=== PATIENT | male | born 1940 | race Caucasian/White ===

== ENCOUNTER 2016-03-15 09:19 | Inpatient (IN) | payer OTHER, BC ==
[~2016-03-15] VITALS: Ht 177.8 cm; Wt 167.6 kg
[2016-03-15 00:45] VITALS: BP 132/69
[~2016-03-15 09:19] MED LIST: ASMANEX TW200 MICRO1 IH; BENICAR40 MG PO; COLACE100 MG PO; COREG25 M1 PO; DULERA 200 MCG/13 GM IH; FLONASE16 G1 BOTH NARES; HYTRIN10 MG PO; LEVAQUIN750 MG PO; LEXAPRO10 MG PO; NORCO 5/3251 TABLET PO; NORVASC10 MG PO; POLYETHYLENE GL17 GM PO; PRILOSEC20 MG PO; PROVENTIL HFA6.7 GM IH; SAW PALMETTO160 MG PO; SINGULAIR10 MG PO; SPIRIVA1 INHALATI IH; TAMSULOSIN HCL0.4 MG PO; ZYRTEC10 M2 PO
[2016-03-15] MEDS ORDERED: FUROSEMIDE40 MG PO (09:38)
[2016-03-15] MEDS ORDERED: XARELTO20 MG PO (09:38)
[2016-03-15] MEDS ORDERED: CARVEDILOL25 MG PO (09:38)
[2016-03-15] MEDS ORDERED: CYMBALTA30 MG PO (09:39)
[2016-03-15] MEDS ORDERED: TYLENOL REGULA325 MG PO (09:41)
[2016-03-15 11:10] LABS: EOSINOPHIL (%) 1.9 % (0-5); EOSINOPHIL COUNT 0.2 K/uL (0-0.3); HEMATOCRIT 32.4 % (38.0-50.0); IMMATURE GRANULOCYTE (%) 0.3 % (0.0-0.7); IMMATURE GRANULOCYTE COUNT 0.3 K/uL; LYMPHOCYTE COUNT 0.9 K/uL (1.0-2.8); MCH 30.1 PG (29.0-34.0); MCHC 31.5 G/DL (30.0-36.0); MCV 95.6 FL (86-99); MEAN PLAT.VOLUME 12.5 uM^3 (9.0-12.4); MONOCYTE (%) 9.3 % (3-12); MONOCYTE COUNT 0.8 K/uL (0-0.8); NEUTROPHIL (%) 78.4 % (45-76); NEUTROPHIL COUNT 7.1 K/uL (1.8-6.4); PLATELET COUNT 111 K/uL (156-360); RBC DIS.WIDTH-CV 15.5 % (11.8-14.6); RBC DIS.WIDTH-SD 51.4 % (39-53); RED BLOOD COUNT 3.39 M/uL (4.00-5.50); WHITE BLOOD COUNT 9.1 K/uL (4.1-10.2)
[2016-03-15 11:19] LABS: PROTHROMBIN TIME 21.3 (9.2-11.2); PTT 41.8 (25-32)
[2016-03-15 11:31] LABS: TROP-I INTERPRETATION NEGATIVE; TROPONIN-I 0.03 ng/mL (0.0-0.30)
[2016-03-15 11:32] LABS: CK-MB 14.2 ng/mL (0.0-4.9)
[2016-03-15 12:38] LABS: ANION GAP 14 MEQ/L (2-14); CHLORIDE 107 MEQ/L (99-109); CREATINE KINASE 749 IU/L (1-294); GFR ESTIMATE (CALCULATED) > 59 mL/min/; GLUCOSE 105 mg/dL (70-99); POTASSIUM 3.5 MEQ/L (3.7-5.4); SAMPLE HEMOLYSIS CHECK 0; SAMPLE ICTERIC CHECK 0; SAMPLE LIPEMIA CHECK 0; SODIUM 144 MEQ/L (136-147); TOTAL CK 749 IU/L (1-294); UREA NITROGEN (BUN) 21 mg/dL (9-23)
[2016-03-15 13:24] LABS: ADD MIUA? YES; BILIRUBIN MODERATE; BLOOD LARGE; GLUCOSE (STRIP) NEGATIVE; KETONES 15; LEUKOCYTES TRACE; NITRITE NEGATIVE; PROTEIN (STRIP) 30; SPECIFIC GRAVITY 1.026 (1.000-1.030)
[2016-03-15 13:25] LABS: COLOR DK YELLOW ((YELLOW))
[2016-03-15 13:34] LABS: ICTOTEST NEGATIVE
[2016-03-15 13:58] LABS: BACTERIA NONE SEEN; CASTS NONE SEEN /LPF; CRYSTALS NONE SEEN; EPITHELIAL CELLS RARE; MUCUS RARE; RED BLOOD CELLS TNTC /HPF (0-5); UCUL ADDED? NO
[2016-03-15 16:14] LABS: TROP-I INTERPRETATION NEGATIVE; TROPONIN-I 0.04 ng/mL (0.0-0.30)
[2016-03-15 16:32] VITALS: BP 143/69
[2016-03-15 21:00] VITALS: BP 148/79
[2016-03-15 23:21] LABS: TROP-I INTERPRETATION NEGATIVE; TROPONIN-I 0.03 ng/mL (0.0-0.30)
[2016-03-16 03:45] VITALS: BP 152/76
[2016-03-16 07:20] LABS: HEMATOCRIT 30.7 % (38.0-50.0); MCH 29.8 PG (29.0-34.0); MCHC 30.9 G/DL (30.0-36.0); MCV 96.2 FL (86-99); MEAN PLAT.VOLUME 12.7 uM^3 (9.0-12.4); PLATELET COUNT 128 K/uL (156-360); RBC DIS.WIDTH-CV 15.9 % (11.8-14.6); RBC DIS.WIDTH-SD 55.5 % (39-53); RED BLOOD COUNT 3.19 M/uL (4.00-5.50); WHITE BLOOD COUNT 9.2 K/uL (4.1-10.2)
[2016-03-16 07:31] LABS: INTER. NORMALIZED RATIO 1.5; PROTHROMBIN TIME 15.9 (9.2-11.2)
[2016-03-16 08:03] VITALS: BP 156/83
[2016-03-16 08:04] LABS: ANION GAP 9 MEQ/L (2-14); CHLORIDE 108 MEQ/L (99-109); CREATINE KINASE 324 IU/L (1-294); GFR ESTIMATE (CALCULATED) > 59 mL/min/; GLUCOSE 113 mg/dL (70-99); POTASSIUM 3.8 MEQ/L (3.7-5.4); SAMPLE HEMOLYSIS CHECK 0; SAMPLE ICTERIC CHECK 0; SAMPLE LIPEMIA CHECK 0; SODIUM 143 MEQ/L (136-147); UREA NITROGEN (BUN) 20 mg/dL (9-23)
[2016-03-16 11:58] VITALS: BP 146/78
[2016-03-16 15:36] VITALS: BP 142/68
[2016-03-16 19:18] VITALS: BP 127/60
[2016-03-16 22:14] VITALS: BP 132/74
[2016-03-17 03:46] VITALS: BP 152/70
[2016-03-17 07:05] LABS: EOSINOPHIL (%) 0 % (0-5); HEMATOCRIT 31.8 % (38.0-50.0); IMMATURE GRANULOCYTE (%) 0.4 % (0.0-0.7); LYMPHOCYTE COUNT 0.3 K/uL (1.0-2.8); MCH 30.1 PG (29.0-34.0); MCHC 31.1 G/DL (30.0-36.0); MCV 96.7 FL (86-99); MEAN PLAT.VOLUME 12.6 uM^3 (9.0-12.4); MONOCYTE (%) 3.4 % (3-12); MONOCYTE COUNT 0.3 K/uL (0-0.8); NEUTROPHIL (%) 92.2 % (45-76); NEUTROPHIL COUNT 7.3 K/uL (1.8-6.4); PLATELET COUNT 119 K/uL (156-360); RBC DIS.WIDTH-CV 15.7 % (11.8-14.6); RBC DIS.WIDTH-SD 55.2 % (39-53); RED BLOOD COUNT 3.29 M/uL (4.00-5.50); WHITE BLOOD COUNT 7.9 K/uL (4.1-10.2)
[2016-03-17 07:29] LABS: ANION GAP 7 MEQ/L (2-14); CHLORIDE 107 MEQ/L (99-109); GFR ESTIMATE (CALCULATED) > 59 mL/min/; GLUCOSE 163 mg/dL (70-99); SAMPLE HEMOLYSIS CHECK 0; SAMPLE ICTERIC CHECK 0; SAMPLE LIPEMIA CHECK 0; SODIUM 141 MEQ/L (136-147); UREA NITROGEN (BUN) 21 mg/dL (9-23)
[2016-03-17 07:54] VITALS: BP 151/83
[2016-03-17 11:09] VITALS: BP 145/72
[2016-03-17 15:34] VITALS: BP 131/69
[2016-03-17 19:42] VITALS: BP 119/57
[2016-03-18 00:21] VITALS: BP 123/57
[2016-03-18 04:14] VITALS: BP 127/69
[2016-03-18 06:41] LABS: HEMATOCRIT 30.6 % (38.0-50.0); MCH 29.8 PG (29.0-34.0); MCV 95.9 FL (86-99); MEAN PLAT.VOLUME 12.1 uM^3 (9.0-12.4); PLATELET COUNT 120 K/uL (156-360); RBC DIS.WIDTH-CV 15.5 % (11.8-14.6); RBC DIS.WIDTH-SD 53.7 % (39-53); RED BLOOD COUNT 3.19 M/uL (4.00-5.50); WHITE BLOOD COUNT 8.4 K/uL (4.1-10.2)
[2016-03-18 07:10] LABS: ANION GAP 5 MEQ/L (2-14); CHLORIDE 108 MEQ/L (99-109); GFR ESTIMATE (CALCULATED) > 59 mL/min/; POTASSIUM 3.9 MEQ/L (3.7-5.4); SAMPLE HEMOLYSIS CHECK 0; SAMPLE ICTERIC CHECK 0; SAMPLE LIPEMIA CHECK 0; SODIUM 142 MEQ/L (136-147); UREA NITROGEN (BUN) 26 mg/dL (9-23)
[2016-03-18 07:19] LABS: GLUCOSE 107 mg/dL (70-99)
[2016-03-18 08:31] VITALS: BP 155/74
[2016-03-18 16:08] VITALS: BP 114/69
[2016-03-18 20:00] VITALS: BP 129/77
[2016-03-18 22:40] VITALS: BP 114/69
[2016-03-19 03:14] VITALS: BP 137/73
[2016-03-19 06:50] LABS: HEMATOCRIT 32.9 % (38.0-50.0); MCH 29.9 PG (29.0-34.0); MCHC 30.7 G/DL (30.0-36.0); MCV 97.3 FL (86-99); MEAN PLAT.VOLUME 12.7 uM^3 (9.0-12.4); PLATELET COUNT 119 K/uL (156-360); RBC DIS.WIDTH-CV 15.9 % (11.8-14.6); RBC DIS.WIDTH-SD 56.7 % (39-53); RED BLOOD COUNT 3.38 M/uL (4.00-5.50); WHITE BLOOD COUNT 7.3 K/uL (4.1-10.2)
[2016-03-19 07:16] LABS: ANION GAP 8 MEQ/L (2-14); CHLORIDE 108 MEQ/L (99-109); GFR ESTIMATE (CALCULATED) > 59 mL/min/; GLUCOSE 87 mg/dL (70-99); POTASSIUM 4.1 MEQ/L (3.7-5.4); SAMPLE HEMOLYSIS CHECK 0; SAMPLE ICTERIC CHECK 0; SAMPLE LIPEMIA CHECK 0; SODIUM 143 MEQ/L (136-147); UREA NITROGEN (BUN) 28 mg/dL (9-23)
[2016-03-19 08:40] VITALS: BP 146/72
[2016-03-19 11:19] VITALS: BP 105/59
[2016-03-19 16:45] VITALS: BP 145/78
[2016-03-19 19:22] VITALS: BP 147/71
[2016-03-19 23:05] VITALS: BP 151/72
[2016-03-20 03:10] VITALS: BP 145/67
[2016-03-20 08:21] VITALS: BP 151/80
[2016-03-20 11:25] VITALS: BP 103/53
[2016-03-20] MEDS ORDERED: CLINDAMYCIN HC300 MG PO (14:53)
[2016-03-20] MEDS ORDERED: FUROSEMIDE40 MG PO (14:53)
[2016-03-20] MEDS ORDERED: FAMOTIDINE20 MG PO (14:53)
[2016-03-20] MEDS ORDERED: CIPROFLOXACIN H10 ML BOTH EYES (14:53)
== END 2016-03-20 17:38 | disposition home health service (06) | DRG 557 ==
LOC: EME → EDBD 09:19 → EME 09:19 → 5WEST 13:05 → EDOF 13:05 → 5WEST 15:28 → 5EAST 03-16 11:48 → 5WEST 03-16 11:48 → 5EAST 03-16 21:48
PROVIDERS: Emergency Medicine; Hospitalist; Nurse Practitioner Adult Health; Student in an Organized Health Care Education/Training Program
DX: M62.82 Rhabdomyolysis (principal); G93.40 Encephalopathy, unspecified; J44.1 Chronic obstructive pulmonary disease with (acute) exacerbation; Z68.43 Body mass index [BMI] 50.0-59.9, adult; R44.3 Hallucinations, unspecified; J44.0 Chronic obstructive pulmonary disease with (acute) lower respiratory infection; S30.1XXA Contusion of abdominal wall, initial encounter; W01.10XA Fall on same level from slipping, tripping and stumbling with subsequent striking against unspecified object, initial encounter; Z99.81 Dependence on supplemental oxygen; I48.2 Chronic atrial fibrillation; Z91.81 History of falling; E66.01 Morbid (severe) obesity due to excess calories; H10.89 Other conjunctivitis; J20.9 Acute bronchitis, unspecified; Z87.891 Personal history of nicotine dependence; L03.116 Cellulitis of left lower limb; I87.8 Other specified disorders of veins; G47.33 Obstructive sleep apnea (adult) (pediatric); K21.9 Gastro-esophageal reflux disease without esophagitis; F07.81 Postconcussional syndrome
CPT/HCPCS: 70450; 71010; 80048; 81003; 82550; 82550 91; 82553; 84484; 85025; 85027; 85610; 85730; 87040; 93005; 93971; 94640; 94640 76; 94799; 97530 GO; 99202; 99281; 99285; G0378; G8978 GP CM; G8979 CJ; G8987 GO CM; G8988 GO CJ; J0456; J0696; J1644; J1956; J2920; J7030; J7050; J7512; J7644

== ENCOUNTER 2016-05-12 12:35 | Inpatient (IN) | payer OTHER, BC ==
[~2016-05-12] VITALS: Ht 177.8 cm; Wt 153.7 kg
[~2016-05-12 12:35] MED LIST changes: +CARVEDILOL25 MG PO; +CIPROFLOXACIN H10 ML BOTH EYES; +CLINDAMYCIN HC300 MG PO; +CYMBALTA30 MG PO; +FAMOTIDINE20 MG PO; +FUROSEMIDE40 MG PO; +TYLENOL REGULA325 MG PO; +XARELTO20 MG PO
[2016-05-12] MEDS ORDERED: FUROSEMIDE40 MG PO (13:07)
[2016-05-12 14:00] LABS: EOSINOPHIL (%) 5.7 % (0-5); EOSINOPHIL COUNT 0.3 K/uL (0-0.3); HEMATOCRIT 31.9 % (38.0-50.0); IMMATURE GRANULOCYTE (%) 0.2 % (0.0-0.7); INSTRUMENT ABS NEUTROPHIL CT 4.6 K/uL; LYMPHOCYTE COUNT 0.5 K/uL (1.0-2.8); MCH 29.4 PG (29.0-34.0); MCHC 30.4 G/DL (30.0-36.0); MCV 96.7 FL (86-99); MEAN PLAT.VOLUME 12.8 uM^3 (9.0-12.4); MONOCYTE (%) 8.2 % (3-12); MONOCYTE COUNT 0.5 K/uL (0-0.8); NEUTROPHIL (%) 77.7 % (45-76); NEUTROPHIL COUNT 4.6 K/uL (1.8-6.4); PLATELET COUNT 105 K/uL (156-360); RBC DIS.WIDTH-CV 15.1 % (11.8-14.6); RBC DIS.WIDTH-SD 54.1 % (39-53)
[2016-05-12 14:18] LABS: CHLORIDE 103 mEq/L (99-109); POTASSIUM 4.1 mEq/L (3.7-5.4); SODIUM 139 mEq/L (136-147)
[2016-05-12 14:20] LABS: GLUCOSE 102 mg/dL (70-99)
[2016-05-12 14:21] LABS: ANION GAP 8 MEQ/L (2-14)
[2016-05-12 14:24] LABS: GFR ESTIMATE (CALCULATED) > 59 mL/min/
[2016-05-12 14:25] LABS: UREA NITROGEN (BUN) 24 mg/dL (9-23)
[2016-05-12] MEDS ORDERED: DULOXETINE HCL60 MG PO (15:19)
[2016-05-12] MEDS ORDERED: BACTRIM,SEPT1 TABLET PO (15:19)
[2016-05-12] MEDS ORDERED: COREG25 M1 PO (15:20)
[2016-05-12] MEDS ORDERED: DULERA 200 MCG/13 GM IH (15:21)
[2016-05-12] MEDS ORDERED: SPIRIVA1 INHALATI IH (15:21)
[2016-05-12] MEDS ORDERED: PROVENTIL HFA6.7 GM IH (15:23)
[2016-05-12] MEDS ORDERED: FLONASE16 G1 BOTH NARES (15:24)
[2016-05-12] MEDS ORDERED: ZYRTEC10 M3 PO (15:24)
[2016-05-12] MEDS ORDERED: TYLENOL EXTRA500 MG PO (15:24)
[2016-05-12] MEDS ORDERED: PROBIOTIC1 EAC1 PO (15:25)
[2016-05-12 16:00] LABS: ERTH.SED.RATE 26 MM/HR (0-20)
[2016-05-12 16:31] LABS: C-REACTIVE PROTEIN 18.6 MG/L (0-10)
[2016-05-12 18:25] VITALS: BP 149/99
[2016-05-13 00:19] VITALS: BP 157/80
[2016-05-13 04:06] VITALS: BP 150/82
[2016-05-13 07:11] LABS: EOSINOPHIL (%) 6.8 % (0-5); EOSINOPHIL COUNT 0.4 K/uL (0-0.3); HEMATOCRIT 30.2 % (38.0-50.0); IMMATURE GRANULOCYTE (%) 0.4 % (0.0-0.7); INSTRUMENT ABS NEUTROPHIL CT 3.8 K/uL; LYMPHOCYTE COUNT 0.6 K/uL (1.0-2.8); MCH 28.8 PG (29.0-34.0); MCHC 29.8 G/DL (30.0-36.0); MCV 96.5 FL (86-99); MONOCYTE (%) 10.7 % (3-12); MONOCYTE COUNT 0.6 K/uL (0-0.8); NEUTROPHIL (%) 70.8 % (45-76); NEUTROPHIL COUNT 3.8 K/uL (1.8-6.4); PLATELET COUNT 100 K/uL (156-360); RBC DIS.WIDTH-CV 15.2 % (11.8-14.6); RBC DIS.WIDTH-SD 53.8 % (39-53); RED BLOOD COUNT 3.13 M/uL (4.00-5.50); WHITE BLOOD COUNT 5.3 K/uL (4.1-10.2)
[2016-05-13 07:29] LABS: ALKALINE PHOSPHATASE 70 IU/L (3-129); ANION GAP 7 MEQ/L (2-14); CHLORIDE 107 MEQ/L (99-109); GFR ESTIMATE (CALCULATED) > 59 mL/min/; GLUCOSE 97 mg/dL (70-99); POTASSIUM 4.2 MEQ/L (3.7-5.4); SAMPLE HEMOLYSIS CHECK 0; SAMPLE ICTERIC CHECK 0; SAMPLE LIPEMIA CHECK 0; SODIUM 142 MEQ/L (136-147); TOTAL BILIRUBIN 0.9 MG/DL (0.0-1.0); UREA NITROGEN (BUN) 24 mg/dL (9-23)
[2016-05-13 07:43] VITALS: BP 186/94
[2016-05-13 13:17] VITALS: BP 139/71
[2016-05-13 16:02] VITALS: BP 136/74
[2016-05-13 20:00] VITALS: BP 145/90
[2016-05-14] VITALS: BP 148/91
[2016-05-14 04:00] VITALS: BP 148/73
[2016-05-14 07:46] VITALS: BP 146/80
[2016-05-14 10:56] VITALS: BP 132/58
[2016-05-14 12:02] LABS: ANION GAP 5 MEQ/L (2-14); CHLORIDE 104 MEQ/L (99-109); POTASSIUM 3.6 MEQ/L (3.7-5.4); SAMPLE HEMOLYSIS CHECK 0; SAMPLE ICTERIC CHECK 0; SAMPLE LIPEMIA CHECK 0; SODIUM 143 MEQ/L (136-147)
[2016-05-14 12:08] LABS: GFR ESTIMATE (CALCULATED) > 59 mL/min/; GLUCOSE 116 mg/dL (70-99); UREA NITROGEN (BUN) 19 mg/dL (9-23)
[2016-05-14 16:02] VITALS: BP 143/72
[2016-05-14 20:00] VITALS: BP 135/67
[2016-05-15] VITALS: BP 130/60
[2016-05-15 04:00] VITALS: BP 139/60
[2016-05-15 07:42] VITALS: BP 144/77
[2016-05-15 08:11] LABS: ANION GAP 6 MEQ/L (2-14); CHLORIDE 102 MEQ/L (99-109); GFR ESTIMATE (CALCULATED) > 59 mL/min/; GLUCOSE 96 mg/dL (70-99); POTASSIUM 4.3 MEQ/L (3.7-5.4); SAMPLE HEMOLYSIS CHECK 0; SAMPLE ICTERIC CHECK 0; SAMPLE LIPEMIA CHECK 0; SODIUM 144 MEQ/L (136-147); UREA NITROGEN (BUN) 18 mg/dL (9-23)
[2016-05-15 11:17] VITALS: BP 125/58
[2016-05-15 15:26] VITALS: BP 135/62
[2016-05-15 19:37] VITALS: BP 123/58
[2016-05-16] VITALS: BP 134/66
[2016-05-16 03:31] VITALS: BP 133/60
[2016-05-16 07:21] LABS: HEMATOCRIT 31.8 % (38.0-50.0); MCHC 30.2 G/DL (30.0-36.0); MCV 96.1 FL (86-99); RED BLOOD COUNT 3.31 M/uL (4.00-5.50); WHITE BLOOD COUNT 6.1 K/uL (4.1-10.2)
[2016-05-16 07:47] VITALS: BP 137/76
[2016-05-16 08:08] LABS: MEAN PLAT.VOLUME 12.9 uM^3 (9.0-12.4); PLATELET COUNT 110 K/uL (156-360)
[2016-05-16 08:30] LABS: IRON 49 MCG/DL (35-150)
[2016-05-16 08:32] LABS: ANION GAP 7 MEQ/L (2-14); CHLORIDE 98 MEQ/L (99-109); GFR ESTIMATE (CALCULATED) > 59 mL/min/; GLUCOSE 95 mg/dL (70-99); POTASSIUM 3.9 MEQ/L (3.7-5.4); SAMPLE HEMOLYSIS CHECK 0; SAMPLE ICTERIC CHECK 0; SAMPLE LIPEMIA CHECK 0; SODIUM 143 MEQ/L (136-147); UREA NITROGEN (BUN) 22 mg/dL (9-23)
[2016-05-16 09:40] LABS: FERRITIN 54 NG/ML (22-322)
[2016-05-16] MEDS ORDERED: DULOXETINE HCL30 MG PO (10:58)
[2016-05-16 11:23] VITALS: BP 144/64
[2016-05-16] MEDS ORDERED: FUROSEMIDE40 MG PO (12:34)
== END 2016-05-16 13:33 | disposition home health service (06) | DRG 987 ==
LOC: EME → EDBD 12:35 → EME 12:35 → EDOF 15:12 → 5SOUTH 15:12
PROVIDERS: Hospitalist; Internal Medicine Cardiovascular Disease; Nurse Practitioner Adult Health; Physician Assistant; Physician Assistant Medical
PROC: 0MD Bursae and Ligaments, Extraction (ICD-10-PCS; principal; 2016-05-13)
DX: I83.228 Varicose veins of left lower extremity with both ulcer of other part of lower extremity and inflammation (principal); I50.33 Acute on chronic diastolic (congestive) heart failure; J44.0 Chronic obstructive pulmonary disease with (acute) lower respiratory infection; Z68.43 Body mass index [BMI] 50.0-59.9, adult; Z99.81 Dependence on supplemental oxygen; I48.2 Chronic atrial fibrillation; I27.2 Other secondary pulmonary hypertension; E66.01 Morbid (severe) obesity due to excess calories; I11.0 Hypertensive heart disease with heart failure; G47.33 Obstructive sleep apnea (adult) (pediatric); E78.5 Hyperlipidemia, unspecified
CPT/HCPCS: 71010; 73590; 80048; 80053; 80202; 82728; 83540; 83605; 83880; 84466; 85025; 85027; 85651; 86140; 87040; 87070; 87075; 87205; 93005; 93306; 93925; 93971; 94640; 94640 76; 94799; 99202; 99281; 99285; J0692; J1644; J1940; J3370; J7030; J7050

== ENCOUNTER → 2016-07-12 | Outpatient (CLI) | payer OTHER, BC ==
[~2016-07-12] VITALS: Ht 177.8 cm; Wt 158.0 kg
[~2016-07-12] MED LIST changes: +BACTRIM,SEPT1 TABLET PO; +DULOXETINE HCL30 MG PO; +DULOXETINE HCL60 MG PO; +PROBIOTIC1 EAC1 PO; +TYLENOL EXTRA500 MG PO; +ZYRTEC10 M3 PO
[2016-07-12 16:33] VITALS: BP 166/79
== END | disposition home or self-care (01) ==
LOC: IVINF 15:51
DX: L03.116 Cellulitis of left lower limb (principal); L97.821 Non-pressure chronic ulcer of other part of left lower leg limited to breakdown of skin
CPT/HCPCS: 96365; J0696; J7050

== ENCOUNTER 2016-10-18 02:18 | Inpatient (IN) | payer OTHER, BC ==
[~2016-10-18] VITALS: Ht 180.3 cm; Wt 167.0 kg
[2016-10-18 03:24] LABS: EOSINOPHIL COUNT 0.2 K/uL (0-0.3); HEMATOCRIT 33.8 % (38.0-50.0); IMMATURE GRANULOCYTE COUNT 0.2 K/uL; INSTRUMENT ABS NEUTROPHIL CT 13.2 K/uL; LYMPHOCYTE COUNT 0.3 K/uL (1.0-2.8); MCH 29.3 PG (29.0-34.0); MCHC 30.2 G/DL (30.0-36.0); MCV 97.1 FL (86-99); MONOCYTE (%) 7.2 % (3-12); MONOCYTE COUNT 1.1 K/uL (0-0.8); NEUTROPHIL (%) 88.4 % (45-76); NEUTROPHIL COUNT 13.2 K/uL (1.8-6.4); RBC DIS.WIDTH-CV 15.3 % (11.8-14.6); RBC DIS.WIDTH-SD 54.3 % (39-53); RED BLOOD COUNT 3.48 M/uL (4.00-5.50); WHITE BLOOD COUNT 14.9 K/uL (4.1-10.2)
[2016-10-18 03:49] LABS: TROP-I INTERPRETATION NEGATIVE; TROPONIN-I 0.07 ng/mL (0.0-0.30)
[2016-10-18 04:18] LABS: PLAT.SUFFICIENCY ADEQUATE; PLATELET CLUMPS PRESENT - PLATELET COUNT APPEARS ADQ.
[2016-10-18 05:11] LABS: CHLORIDE 103 mEq/L (99-109); POTASSIUM 3.5 mEq/L (3.7-5.4); SODIUM 146 mEq/L (136-147)
[2016-10-18 05:12] LABS: GLUCOSE 128 mg/dL (70-99)
[2016-10-18 05:14] LABS: ANION GAP 12 MEQ/L (2-14)
[2016-10-18 05:16] LABS: GFR ESTIMATE (CALCULATED) > 59 mL/min/
[2016-10-18 05:17] LABS: UREA NITROGEN (BUN) 18 mg/dL (9-23)
[2016-10-18 06:13] LABS: INTER. NORMALIZED RATIO 1.5
[2016-10-18 06:16] LABS: PTT 38.6 SEC (25-37)
[2016-10-18] MEDS ORDERED: LASIX40 MG PO ×2 (09:09→09:10)
[2016-10-18] MEDS ORDERED: ASPIR-LOW81 MG PO (09:10)
[2016-10-18] MEDS ORDERED: ACETAMINOPHEN1 EAC4 PO (09:11)
[2016-10-18] MEDS ORDERED: CETIRIZINE HCL10 M2 PO (09:13)
[2016-10-18] MEDS ORDERED: BENEFIBER152 GM PO (09:14)
[2016-10-18] MEDS ORDERED: SYMBICORT60 INHALAT IH (09:14)
[2016-10-18] MEDS ORDERED: PROVENTIL HFA6.7 GM IH (09:14)
[2016-10-18] MEDS ORDERED: METOLAZONE2.5 MG PO (09:15)
[2016-10-18] MEDS ORDERED: DUONEB 2.5-0.5 M3 ML AEROSOL (09:17)
[2016-10-18 12:03] VITALS: BP 0/0
== END 2016-10-19 19:00 | DRG 190 ==
LOC: EME → EDBD 02:18 → EME 02:18 → 3EAST 07:52 → EDOF 07:52 → ENRESERV 07:56 → EDOF 08:14 → ENRESERV 10:16 → 3EAST 11:07 → ENRESERV 10-19 11:36 → CANRESERV 10-19 11:36 → 3EAST 10-19 19:00
PROVIDERS: Emergency Medicine
DX: J44.0 Chronic obstructive pulmonary disease with (acute) lower respiratory infection (principal); J18.9 Pneumonia, unspecified organism; J96.01 Acute respiratory failure with hypoxia; Z66 Do not resuscitate; Z51.5 Encounter for palliative care; I11.0 Hypertensive heart disease with heart failure; I50.9 Heart failure, unspecified; K21.9 Gastro-esophageal reflux disease without esophagitis; I48.2 Chronic atrial fibrillation; G47.30 Sleep apnea, unspecified; F32.9 Major depressive disorder, single episode, unspecified; F41.9 Anxiety disorder, unspecified; E66.9 Obesity, unspecified; Z87.891 Personal history of nicotine dependence; Z99.81 Dependence on supplemental oxygen
CPT/HCPCS: 71010; 80048; 81003; 83605; 83880; 84484; 85025; 85610; 85730; 87040; 93005; 94640; 94799; 99281; 99285; J0456; J0692; J1940; J2060; J2270; J3370; J7050